=== PATIENT | male | born 1935 | race Caucasian/White ===

== ENCOUNTER → 2016-08-13 | Outpatient (CLI) | payer OTHER, BC ==
[~2016-08-13] MED LIST: ADVAIR DISCUS INH; ADVAIR HFA 230M1 AER PO; ALBUTEROL2.5 MG/0.5 INH; AMARYL2 MG PO; ASPIRIN EC81 M1 PO; BYSTOLIC 5 MG5 M1 PO; BYSTOLIC10 MG PO; CLARITIN10 MG PO; COQ-10100 MG PO; DUONEB 2.5-0.5 M3 ML; FISH OIL 1,0001 EAC5 PO; FLONASE 0.05%50 MCG NASAL; FUROSEMIDE 40 M40 M1 PO; FUROSEMIDE 40 M40 MG PO; GLUCOPHAGE XR500 MG PO; GLUCOPHAGE500 MG PO; IBUPROFEN 200200 M1 PO; KLOR-CON 10 ER10 MEQ PO; LEVAQUIN 750 M750 MG PO; LIPITOR20 MG PO; MOBIC7.5 MG PO; NASONEX17 GM NASAL; NORCO 5-325 TA1 EACH; PRADAXA150 MG PO; PREDNISONE 10 M10 MG PO; PROAIR HFA8.5 GM INH; SLEEP SOFTGEL1 EACH PO; SPIRIVA INH; TAMSULOSIN HCL0.4 M1 PO; TOPROL XL100 MG PO; XOPENEX0.63 MG/3; pro air
== END ==
LOC: CAT 08:42
DX: K80.20 Calculus of gallbladder without cholecystitis without obstruction (principal); J84.9 Interstitial pulmonary disease, unspecified; K76.0 Fatty (change of) liver, not elsewhere classified; R91.1 Solitary pulmonary nodule

== ENCOUNTER → 2017-01-31 | Outpatient (CLI) | payer OTHER, BC ==
[~2017-01-31] MED LIST changes: +COZAAR 25 MG TA25 M1 PO; +HYDROXYCHLOROQ200 M1 PO; +ULTRAM 50MG TAB50 MG PO
== END ==
LOC: ULTRA 01-28 12:25 → CAT 01-28 12:28
DX: C34.92 Malignant neoplasm of unspecified part of left bronchus or lung (principal); J44.9 Chronic obstructive pulmonary disease, unspecified

== ENCOUNTER → 2017-04-15 | Outpatient (CLI) | payer OTHER, BC | LOC: RAD 08:23 | DX: I51.7 Cardiomegaly (principal) ==

== ENCOUNTER → 2017-08-15 | Outpatient (CLI) | payer OTHER, BC | LOC: RAD 10:55 | DX: R05 Cough (principal); R06.02 Shortness of breath ==